=== PATIENT | male | born 1960 | race Caucasian/White ===

== ENCOUNTER 2018-02-10 06:11 | Day surgery (SDC) | payer BC ==
[2018-02-10] MEDS ORDERED: FENTAnyl 50 MCG/ML VIAL (09:08)
[2018-02-10] MEDS ORDERED: MIDAZOLAM 1 MG/ML 2 ML INJ ×2 (09:09)
== END 2018-02-10 10:31 | disposition home or self-care (01) ==
LOC: GIL 06:11
DX: Z12.11 Encounter for screening for malignant neoplasm of colon (principal); K64.8 Other hemorrhoids
CPT/HCPCS: 45378; 82962